=== PATIENT | female | born 1980 | race Hispanic/Latino ===

== ENCOUNTER 2019-06-17 19:23 | Emergency (ER) | payer SELFPAY ==
[2019-06-17] MEDS ORDERED: predniSONE 20 MG TAB ONE (19:56)
== END 2019-06-17 21:45 | disposition home or self-care (01) ==
LOC: ERS 19:23
DX: J20.9 Acute bronchitis, unspecified (principal); J45.901 Unspecified asthma with (acute) exacerbation; Z79.51 Long term (current) use of inhaled steroids
CPT/HCPCS: J7512; J7620